=== PATIENT | female | born 1975 | race Caucasian/White ===

== ENCOUNTER 2022-07-28 07:56 | Observation (INO) | payer OTHER ==
[2022-07-28] MEDS ORDERED: Reglan 10 MG/2 ML IV ONE (08:10)
[2022-07-28] MEDS ORDERED: Versed 2 MG/2 ML Injection IV PRN (08:10)
[2022-07-28] MEDS ORDERED: Transderm Scop 1.5MG Patch TOP PRN (08:10)
[2022-07-28] MEDS ORDERED: CEFAZOLIN 2 GM-D5W BAG** 2 GM/50 ML ML IV SCH (08:30)
[2022-07-28] MEDS: Lactated Ringers 1,000 ML IV SCH ×2 (08:43→23:42)
[2022-07-28 08:44] LABS: HCG URINE TEST NEGATIVE (NEGATIVE)
[2022-07-28 09:03] LABS: Hemoglobin 10.5 g/dL (12.0-16.0); Mean Cell Volume 71.8 fL (78-100); Mean Corpuscular Hemoglobin 20.4 pg (26-32); Mean Corpuscular Hgb Concent. 28.4 g/dL (32-36); Platelet Count 450 x10^3/uL (150-450); Red Blood Count 5.15 x10^6/uL (4.1-5.4); Red Cell Distribution Width 19.9 % (11.5-14.0); White Blood Count 9.1 x10^3/uL (4.0-10.5)
[2022-07-28 09:37] LABS: ABO TYPING B; Antibody Screen NEGATIVE (NEGATIVE); RH TYPING POSITIVE
[2022-07-28 10:01] LABS: INFLUENZA A NEGATIVE (NEGATIVE); INFLUENZA B NEGATIVE (NEGATIVE); RESPIRATORY SYNCTIAL VIRUS NEGATIVE (NEGATIVE); SARS-CoV-2 Xpert Express NEGATIVE (NEGATIVE)
[2022-07-28] MEDS ORDERED: DIPRIVAN 200 MG/20 ML IV ONE (10:22)
[2022-07-28] MEDS ORDERED: Zofran 4 MG/2 ML VIAL ONE ×2 (10:23→12:56)
[2022-07-28] MEDS ORDERED: Xylocaine-Mpf 2% 5 Ml Vial ONE (10:23)
[2022-07-28] MEDS ORDERED: Decadron 4 MG INJ ONE ×2 (10:23→10:31)
[2022-07-28] MEDS ORDERED: TORAdol 30 mg Injection ONE (10:23)
[2022-07-28] MEDS ORDERED: Quelicin Fliptop 200 MG/10 ML ONE (10:25)
[2022-07-28] MEDS ORDERED: SUBLIMAZE 100 MCG/2 ML ONE ×3 (10:30→12:53)
[2022-07-28] MEDS ORDERED: Marcaine 0.5%/Epinephrine 10 ML ONE (10:31)
[2022-07-28] MEDS ORDERED: DEXMEDETOMIDINE 80 MCG/20ML-NS IV ONE (10:31)
[2022-07-28] MEDS ORDERED: OFIRMEV 100 ML IV ONE (10:32)
[2022-07-28] MEDS ORDERED: Versed 2 MG/2 ML Injection ONE (10:36)
[2022-07-28 10:40] LABS: Slide Review YES
[2022-07-28] MEDS ORDERED: Ketamine HCl 50 MG/ML ONE (10:47)
[2022-07-28] MEDS ORDERED: Magnesium Sulfate 1 GM/2 ML VIAL ONE (10:48)
[2022-07-28] MEDS ORDERED: Zemuron 100 MG/10 ML ONE ×2 (10:55→11:28)
[2022-07-28 11:11] LABS: ALBUMIN 4.3 g/dL (3.5-5.0); ALKALINE PHOSPHATASE 55 U/L (38-126); ANION GAP 13.2 MEQ/L (5-15); BLOOD UREA NITROGEN 16 mg/dL (7-17); CHLORIDE 109 mmol/L (98-107); Carbon Dioxide 24 mmol/L (22-30); Creatinine 1 0.78 mg/dL (0.52-1.04); EST GLOMERULAR FILTRATION RATE > 60.0 ML/MIN; Glucose 96 mg/dL (74-106); Potassium 4.6 mmol/L (3.5-5.1); SGOT/AST 24 U/L (14-36); SGPT/ALT 15 U/L (0-35); SODIUM 141 mmol/L (137-145); Total Protein 7.5 g/dL (6.3-8.2)
[2022-07-28] MEDS ORDERED: Ephedrine Sulfate 50 MG/ML ONE (11:22)
[2022-07-28] MEDS ORDERED: BRIDION 200MG/2ML IV ONE (11:26)
[2022-07-28] MEDS ORDERED: Lactated Ringers 1,000 ML IV ONE (11:29)
[2022-07-28] MEDS ORDERED: ROBINUL ONE (11:57)
[2022-07-28] MEDS ORDERED: TORAdol 30 mg Injection IV PRN (13:25)
[2022-07-28] MEDS ORDERED: DILAUDID 1 MG/1ML PCA SYRINGE IV PRN (13:26)
[2022-07-28 13:27] LABS: Appearance Clear (Clear); Bilirubin Negative (Negative); Blood Negative (Negative); Glucose, Urine Negative (Negative); Ketones Negative (Negative); Leukocyte Esterase Negative (Negative); Nitrite Negative (Negative); Protein,Urine Dip Negative (Negative); RBC 0-2 /HPF (0-5); Urobilinogen 0.2 mg/dL (0.2)
[2022-07-28 13:29] LABS: Epithelial Cells Few /HPF (None Seen)
[2022-07-28 13:30] LABS: Bacteria Rare /HPF (None Seen); Hyaline Casts None Seen /LPF (0-2)
[2022-07-28] MEDS: HYDROMORPHONE 30 MG/30 ML-NS PCA IV PRN (13:49)
[2022-07-28] MEDS: Reglan 10 MG/2 ML IV SCH ×2 (14:26→22:29)
[2022-07-28] MEDS: Mylicon 80MG PO SCH ×2 (14:26→22:30)
[2022-07-28] MEDS ORDERED: PHARMACY DOSING REQUEST MC ONE ×2 (15:00→20:00)
[2022-07-28 18:15] LABS: Hematocrit 33.9 % (35-47); Hemoglobin 9.7 g/dL (12.0-16.0); Mean Cell Volume 71.7 fL (78-100); Mean Corpuscular Hemoglobin 20.5 pg (26-32); Mean Corpuscular Hgb Concent. 28.6 g/dL (32-36); Mean Platelet Volume 9.6 fL (7.5-11.0); Platelet Count 467 x10^3/uL (150-450); Red Blood Count 4.73 x10^6/uL (4.1-5.4); Red Cell Distribution Width 19.1 % (11.5-14.0); White Blood Count 16.7 x10^3/uL (4.0-10.5)
[2022-07-28] MEDS: Zofran 4 MG/2 ML VIAL IV PRN (20:38)
[2022-07-28] MEDS: CEFAZOLIN 2 GM-D5W BAG** 2 GM/50 ML ML IV SCH (20:38)
[2022-07-28] MEDS: OXYCODONE-ACETAMINOPHEN 10-325 PO SCH (20:51)
[2022-07-28] MEDS ORDERED: IBUPROFEN PO SCH (22:00)
[2022-07-28] MEDS: MOTRIN 400 MG PO SCH (22:29)
[2022-07-28] MEDS: Docusate Sodium 100 MG PO SCH (22:30)
[2022-07-29] MEDS: OXYCODONE-ACETAMINOPHEN 10-325 PO SCH ×2 (00:49→05:42)
[2022-07-29] MEDS: CEFAZOLIN 2 GM-D5W BAG** 2 GM/50 ML ML IV SCH (03:38)
[2022-07-29] MEDS ORDERED: CLARITIN 10 MG PO ONE (04:04)
[2022-07-29] MEDS: Mylicon 80MG PO SCH (05:42)
[2022-07-29] MEDS: Reglan 10 MG/2 ML IV SCH (05:43)
[2022-07-29 06:55] LABS: ALBUMIN 3.6 g/dL (3.5-5.0); ALKALINE PHOSPHATASE 54 U/L (38-126); ANION GAP 14.9 MEQ/L (5-15); BLOOD UREA NITROGEN 15 mg/dL (7-17); CHLORIDE 104 mmol/L (98-107); Calcium 8.3 mg/dL (8.4-10.2); Carbon Dioxide 24 mmol/L (22-30); Creatinine 1 0.85 mg/dL (0.52-1.04); EST GLOMERULAR FILTRATION RATE > 60.0 ML/MIN; Glucose 126 mg/dL (74-106); Potassium 4.4 mmol/L (3.5-5.1); SGOT/AST 29 U/L (14-36); SGPT/ALT 19 U/L (0-35); SODIUM 139 mmol/L (137-145); Total Protein 6.4 g/dL (6.3-8.2)
[2022-07-29] MEDS: HYDROMORPHONE 30 MG/30 ML-NS PCA IV PRN (07:31)
--- NOTE | 2022-07-29 07:40 | PCM.NOTE ---
Date and Time: 07/29/22 0738 Subjective Assessment: pod 1 sp hair pt resting in bed and doing well able to ambulate and tolerate diet. vss afebrile abd; soft incision c/d/intact with dressing intact with no soiling ext; no clubbing cyanosis or edema a/p sp hair dc home today should fu office in 1 wk for dressing removal Objective Exam Wound Assessment: Skin/Wound Assessment Wound/Incision Assessment Start: 07/28/22 14:19 Text: Status: Active Freq: Q8H Protocol: Document 07/29/22 03:30 MS (Rec: 07/29/22 06:32 MS [id number]) Wound/Incision Assessment Lower Abdomen Wound Assessment Shift Assessment Wound Type Incision Wound Stage Non Pressure Wound Dressing Status Dry & Intact Drainage Amount None OBJECTIVE DATA Vital Signs: Vital Signs - 24 hr Temp Pulse Resp BP Pulse Ox 07/29/22 07:31 18 98 07/29/22 06:53 94 L 07/29/22 05:49 16 98 07/29/22 03:30 97.5 F 63 18 96/50 95 07/29/22 01:49 16 96 07/29/22 00:00 97.7 F 77 18 107/62 96 07/28/22 21:49 20 97 07/28/22 20:00 98.0 F 93 H 19 123/77 96 07/28/22 18:20 18 93 L 07/28/22 15:59 98.5 F 75 18 118/65 93 L 07/28/22 15:30 117/60 07/28/22 15:26 98.5 F 75 18 124/54 93 L 07/28/22 15:00 75 18 124/54 93 L 07/28/22 14:23 110/61 07/28/22 14:16 122/64 07/28/22 14:01 127/66 07/28/22 13:49 16 94 L 07/28/22 13:46 98.5 F 66 16 134/73 91 L 07/28/22 13:00 98.5 F 66 16 134/73 91 L 07/28/22 08:30 97.8 F 79 16 128/85 97 07/28/22 08:29 97.8 F 79 16 128/85 97 07/28/22 08:28 97.8 F 79 16 128/85 97 07/28/22 08:16 97.8 F 79 16 128/85 97 Pain Assessment - Last Documented Pain Intensity 5 Pain Scale Used 0-10 Pain Scale Intake and Output: Intake & Output 07/26/22 07/27/22 07/28/22 07/29/22 11:59 11:59 11:59 11:59 Intake Total 540 Output Total 700 Balance -160 Weight 97.8 kg 99.1 kg Lab Results: Lab Results-Last 24 Hours 07/28/22 07/28/22 07/28/22 Range/Units 08:11 08:48 08:48 WBC 9.1 (4.0-10.5) x10^3/uL RBC 5.15 (4.1-5.4) x10^6/uL Hgb 10.5 L (12.0-16.0) g/dL Hct 37.0 (35-47) % MCV 71.8 L (78-100) fL MCH 20.4 L (26-32) pg MCHC 28.4 L (32-36) g/dL RDW 19.9 H (11.5-14.0) % Plt Count 450 (150-450) x10^3/uL MPV 10.0 (7.5-11.0) fL Sodium 141 (137-145) mmol/L Potassium 4.6 (3.5-5.1) mmol/L Chloride 109 H (98-107) mmol/L Carbon Dioxide 24 (22-30) mmol/L Anion Gap 13.2 (5-15) MEQ/L BUN 16 (7-17) mg/dL Creatinine 0.78 (0.52-1.04) mg/dL Estimated GFR > 60.0 ML/MIN Glucose 96 (74-106) mg/dL Calcium 9.0 (8.4-10.2) mg/dL Total Bilirubin 0.40 (0.2-1.3) mg/dL AST 24 (14-36) U/L ALT 15 (0-35) U/L Alkaline Phosphatase 55 (38-126) U/L Serum Total Protein 7.5 (6.3-8.2) g/dL Albumin 4.3 (3.5-5.0) g/dL Urine Color (Yellow) Urine Appearance (Clear) Urine pH (4.6-8.0) Ur Specific [place] (1.005-1.030) Urine Protein (Negative) Urine Glucose (UA) (Negative) mg/dL Urine Ketones (Negative) Urine Blood (Negative) Urine Nitrite (Negative) Urine Bilirubin (Negative) Urine Urobilinogen (0.2) mg/dL Ur Leukocyte Esterase (Negative) U Hyaline Cast (Auto) (0-2) /LPF Urine Microscopic RBC (0-5) /HPF Urine Microscopic WBC (0-5) /HPF Ur Epithelial Cells (None Seen) /HPF Urine Bacteria (None Seen) /HPF Urine HCG, Qual NEGATIVE (NEGATIVE) Influenza Type A Ag (NEGATIVE) Influenza Type B Ag (NEGATIVE) RSV (PCR) (NEGATIVE) SARS-CoV-2 (PCR) (NEGATIVE) Slides for Path Review YES ABO Group Rh Factor Antibody Screen (NEGATIVE) 07/28/22 07/28/22 07/28/22 Range/Units 08:48 08:48 11:49 WBC (4.0-10.5) x10^3/uL RBC (4.1-5.4) x10^6/uL Hgb (12.0-16.0) g/dL Hct (35-47) % MCV (78-100) fL MCH (26-32) pg MCHC (32-36) g/dL RDW (11.5-14.0) % Plt Count (150-450) x10^3/uL MPV (7.5-11.0) fL Sodium (137-145) mmol/L Potassium (3.5-5.1) mmol/L Chloride (98-107) mmol/L Carbon Dioxide (22-30) mmol/L Anion Gap (5-15) MEQ/L BUN (7-17) mg/dL Creatinine (0.52-1.04) mg/dL Estimated GFR ML/MIN Glucose (74-106) mg/dL Calcium (8.4-10.2) mg/dL Total Bilirubin (0.2-1.3) mg/dL AST (14-36) U/L ALT (0-35) U/L Alkaline Phosphatase (38-126) U/L Serum Total Protein (6.3-8.2) g/dL Albumin (3.5-5.0) g/dL Urine Color Yellow (Yellow) Urine Appearance Clear (Clear) Urine pH 7.0 (4.6-8.0) Ur Specific [place] 1.020 (1.005-1.030) Urine Protein Negative (Negative) Urine Glucose (UA) Negative (Negative) mg/dL Urine Ketones Negative (Negative) Urine Blood Negative (Negative) Urine Nitrite Negative (Negative) Urine Bilirubin Negative (Negative) Urine Urobilinogen 0.2 (0.2) mg/dL Ur Leukocyte Esterase Negative (Negative) U Hyaline Cast (Auto) None Seen (0-2) /LPF Urine Microscopic RBC 0-2 (0-5) /HPF Urine Microscopic WBC 3-5 (0-5) /HPF Ur Epithelial Cells Few (None Seen) /HPF Urine Bacteria Rare A (None Seen) /HPF Urine HCG, Qual (NEGATIVE) Influenza Type A Ag NEGATIVE (NEGATIVE) Influenza Type B Ag NEGATIVE (NEGATIVE) RSV (PCR) NEGATIVE (NEGATIVE) SARS-CoV-2 (PCR) NEGATIVE (NEGATIVE) Slides for Path Review ABO Group B Rh Factor POSITIVE Antibody Screen NEGATIVE (NEGATIVE) 07/28/22 07/29/22 Range/Units 18:00 04:59 WBC 16.7 H (4.0-10.5) x10^3/uL RBC 4.73 (4.1-5.4) x10^6/uL Hgb 9.7 L (12.0-16.0) g/dL Hct 33.9 L (35-47) % MCV 71.7 L (78-100) fL MCH 20.5 L (26-32) pg MCHC 28.6 L (32-36) g/dL RDW 19.1 H (11.5-14.0) % Plt Count 467 H (150-450) x10^3/uL MPV 9.6 (7.5-11.0) fL Sodium 139 (137-145) mmol/L Potassium 4.4 (3.5-5.1) mmol/L Chloride 104 (98-107) mmol/L Carbon Dioxide 24 (22-30) mmol/L Anion Gap 14.9 (5-15) MEQ/L BUN 15 (7-17) mg/dL Creatinine 0.85 (0.52-1.04) mg/dL Estimated GFR > 60.0 ML/MIN Glucose 126 H (74-106) mg/dL Calcium 8.3 L (8.4-10.2) mg/dL Total Bilirubin 0.30 (0.2-1.3) mg/dL AST 29 (14-36) U/L ALT 19 (0-35) U/L Alkaline Phosphatase 54 (38-126) U/L Serum Total Protein 6.4 (6.3-8.2) g/dL Albumin 3.6 (3.5-5.0) g/dL Urine Color (Yellow) Urine Appearance (Clear) Urine pH (4.6-8.0) Ur Specific [place] (1.005-1.030) Urine Protein (Negative) Urine Glucose (UA) (Negative) mg/dL Urine Ketones (Negative) Urine Blood (Negative) Urine Nitrite (Negative) Urine Bilirubin (Negative) Urine Urobilinogen (0.2) mg/dL Ur Leukocyte Esterase (Negative) U Hyaline Cast (Auto) (0-2) /LPF Urine Microscopic RBC (0-5) /HPF Urine Microscopic WBC (0-5) /HPF Ur Epithelial Cells (None Seen) /HPF Urine Bacteria (None Seen) /HPF Urine HCG, Qual (NEGATIVE) Influenza Type A Ag (NEGATIVE) Influenza Type B Ag (NEGATIVE) RSV (PCR) (NEGATIVE) SARS-CoV-2 (PCR) (NEGATIVE) Slides for Path Review ABO Group Rh Factor Antibody Screen (NEGATIVE) Radiology Exams: Radiology Procedures Category Date Time Status ABDOMEN AND PELVIS W/0 CONTRAS [CT] Urgent Exams 07/28/22 18:30 Taken Assessment/Plan (1) S/P total abdominal hysterectomy Current Visit: Yes Status: Acute Code(s): Z90.710 - ACQUIRED ABSENCE OF BOTH CERVIX AND UTERUS
--- NOTE | 2022-07-29 07:46 | PCM.DS ---
Discharge Summary Date of Admission: 07/28/22 07:56 Admitting Physician: JAMES COHEN DO Primary Care Provider: ELLNE VALDEZ Allergies Allergies shrimp Allergy (Severe, Verified 07/28/22 08:15) Anaphylactic Reaction bupropion [From Wellbutrin] Allergy (Unknown, Verified 07/28/22 08:15) [facility] Summary - Hospital Course Hospital Course: pt was admitted on july 28 after undergoing total abdominal hysterectomy secondary to large fibroid uterus; during postop period did very well and was able to ambulate and tolerate diet. pt had stable hgb at 9.7 wtih normal cmp. pt under ct scan secondary to severe postop abdominal pelvic pain and was noted to being normal. at this time pt stable for discharge and rx of percocet will be sent to her pharmacy. pt advised to fu in office in 1 wk for postop check and dressing removal. all questions answered to her satisfaction. - Vitals & Intake/Output Vital Signs: Vital Signs Temperature 97.5 F 07/29/22 03:30 Pulse Rate 63 07/29/22 03:30 Respiratory Rate 18 07/29/22 07:31 Blood Pressure 96/50 07/29/22 03:30 O2 Sat by Pulse Oximetry 98 07/29/22 07:31 Intake & Output: Intake & Output 07/26/22 07/27/22 07/28/22 07/29/22 11:59 11:59 11:59 11:59 Intake Total 540 Output Total 700 Balance -160 Weight 97.8 kg 99.1 kg - Lab Result Diagrams: 07/28/22 18:00 07/29/22 04:59 Lab Results-Last 24 Hrs: Lab Results-Last 24 Hours 07/28/22 07/28/22 07/28/22 Range/Units 08:11 08:48 08:48 WBC 9.1 (4.0-10.5) x10^3/uL RBC 5.15 (4.1-5.4) x10^6/uL Hgb 10.5 L (12.0-16.0) g/dL Hct 37.0 (35-47) % MCV 71.8 L (78-100) fL MCH 20.4 L (26-32) pg MCHC 28.4 L (32-36) g/dL RDW 19.9 H (11.5-14.0) % Plt Count 450 (150-450) x10^3/uL MPV 10.0 (7.5-11.0) fL Sodium 141 (137-145) mmol/L Potassium 4.6 (3.5-5.1) mmol/L Chloride 109 H (98-107) mmol/L Carbon Dioxide 24 (22-30) mmol/L Anion Gap 13.2 (5-15) MEQ/L BUN 16 (7-17) mg/dL Creatinine 0.78 (0.52-1.04) mg/dL Estimated GFR > 60.0 ML/MIN Glucose 96 (74-106) mg/dL Calcium 9.0 (8.4-10.2) mg/dL Total Bilirubin 0.40 (0.2-1.3) mg/dL AST 24 (14-36) U/L ALT 15 (0-35) U/L Alkaline Phosphatase 55 (38-126) U/L Serum Total Protein 7.5 (6.3-8.2) g/dL Albumin 4.3 (3.5-5.0) g/dL Urine Color (Yellow) Urine Appearance (Clear) Urine pH (4.6-8.0) Ur Specific [place] (1.005-1.030) Urine Protein (Negative) Urine Glucose (UA) (Negative) mg/dL Urine Ketones (Negative) Urine Blood (Negative) Urine Nitrite (Negative) Urine Bilirubin (Negative) Urine Urobilinogen (0.2) mg/dL Ur Leukocyte Esterase (Negative) U Hyaline Cast (Auto) (0-2) /LPF Urine Microscopic RBC (0-5) /HPF Urine Microscopic WBC (0-5) /HPF Ur Epithelial Cells (None Seen) /HPF Urine Bacteria (None Seen) /HPF Urine HCG, Qual NEGATIVE (NEGATIVE) Influenza Type A Ag (NEGATIVE) Influenza Type B Ag (NEGATIVE) RSV (PCR) (NEGATIVE) SARS-CoV-2 (PCR) (NEGATIVE) Slides for Path Review YES ABO Group Rh Factor Antibody Screen (NEGATIVE) 07/28/22 07/28/22 07/28/22 Range/Units 08:48 08:48 11:49 WBC (4.0-10.5) x10^3/uL RBC (4.1-5.4) x10^6/uL Hgb (12.0-16.0) g/dL Hct (35-47) % MCV (78-100) fL MCH (26-32) pg MCHC (32-36) g/dL RDW (11.5-14.0) % Plt Count (150-450) x10^3/uL MPV (7.5-11.0) fL Sodium (137-145) mmol/L Potassium (3.5-5.1) mmol/L Chloride (98-107) mmol/L Carbon Dioxide (22-30) mmol/L Anion Gap (5-15) MEQ/L BUN (7-17) mg/dL Creatinine (0.52-1.04) mg/dL Estimated GFR ML/MIN Glucose (74-106) mg/dL Calcium (8.4-10.2) mg/dL Total Bilirubin (0.2-1.3) mg/dL AST (14-36) U/L ALT (0-35) U/L Alkaline Phosphatase (38-126) U/L Serum Total Protein (6.3-8.2) g/dL Albumin (3.5-5.0) g/dL Urine Color Yellow (Yellow) Urine Appearance Clear (Clear) Urine pH 7.0 (4.6-8.0) Ur Specific [place] 1.020 (1.005-1.030) Urine Protein Negative (Negative) Urine Glucose (UA) Negative (Negative) mg/dL Urine Ketones Negative (Negative) Urine Blood Negative (Negative) Urine Nitrite Negative (Negative) Urine Bilirubin Negative (Negative) Urine Urobilinogen 0.2 (0.2) mg/dL Ur Leukocyte Esterase Negative (Negative) U Hyaline Cast (Auto) None Seen (0-2) /LPF Urine Microscopic RBC 0-2 (0-5) /HPF Urine Microscopic WBC 3-5 (0-5) /HPF Ur Epithelial Cells Few (None Seen) /HPF Urine Bacteria Rare A (None Seen) /HPF Urine HCG, Qual (NEGATIVE) Influenza Type A Ag NEGATIVE (NEGATIVE) Influenza Type B Ag NEGATIVE (NEGATIVE) RSV (PCR) NEGATIVE (NEGATIVE) SARS-CoV-2 (PCR) NEGATIVE (NEGATIVE) Slides for Path Review ABO Group B Rh Factor POSITIVE Antibody Screen NEGATIVE (NEGATIVE) 07/28/22 07/29/22 Range/Units 18:00 04:59 WBC 16.7 H (4.0-10.5) x10^3/uL RBC 4.73 (4.1-5.4) x10^6/uL Hgb 9.7 L (12.0-16.0) g/dL Hct 33.9 L (35-47) % MCV 71.7 L (78-100) fL MCH 20.5 L (26-32) pg MCHC 28.6 L (32-36) g/dL RDW 19.1 H (11.5-14.0) % Plt Count 467 H (150-450) x10^3/uL MPV 9.6 (7.5-11.0) fL Sodium 139 (137-145) mmol/L Potassium 4.4 (3.5-5.1) mmol/L Chloride 104 (98-107) mmol/L Carbon Dioxide 24 (22-30) mmol/L Anion Gap 14.9 (5-15) MEQ/L BUN 15 (7-17) mg/dL Creatinine 0.85 (0.52-1.04) mg/dL Estimated GFR > 60.0 ML/MIN Glucose 126 H (74-106) mg/dL Calcium 8.3 L (8.4-10.2) mg/dL Total Bilirubin 0.30 (0.2-1.3) mg/dL AST 29 (14-36) U/L ALT 19 (0-35) U/L Alkaline Phosphatase 54 (38-126) U/L Serum Total Protein 6.4 (6.3-8.2) g/dL Albumin 3.6 (3.5-5.0) g/dL Urine Color (Yellow) Urine Appearance (Clear) Urine pH (4.6-8.0) Ur Specific [place] (1.005-1.030) Urine Protein (Negative) Urine Glucose (UA) (Negative) mg/dL Urine Ketones (Negative) Urine Blood (Negative) Urine Nitrite (Negative) Urine Bilirubin (Negative) Urine Urobilinogen (0.2) mg/dL Ur Leukocyte Esterase (Negative) U Hyaline Cast (Auto) (0-2) /LPF Urine Microscopic RBC (0-5) /HPF Urine Microscopic WBC (0-5) /HPF Ur Epithelial Cells (None Seen) /HPF Urine Bacteria (None Seen) /HPF Urine HCG, Qual (NEGATIVE) Influenza Type A Ag (NEGATIVE) Influenza Type B Ag (NEGATIVE) RSV (PCR) (NEGATIVE) SARS-CoV-2 (PCR) (NEGATIVE) Slides for Path Review ABO Group Rh Factor Antibody Screen (NEGATIVE) - Radiology Exams Ordered Rad Exams-Entire Visit: Radiology Procedures Category Date Time Status ABDOMEN AND PELVIS W/0 CONTRAS [CT] Urgent Exams 07/28/22 18:30 Taken - Procedures and Test Procedures and Tests throughout Hospitalization: Therapy Orders & Screens 07/28/22 15:39 Incentive Spirometry UD Comment: Diagnosis: Total Abdominal Hysterectomy 07/29/22 00:27 Oxygen Nasal Cannula 2 lpm Comment: Diagnosis: Total Abdominal Hysterectomy Discharge Exam Wound Assessment: Skin/Wound Assessment Wound/Incision Assessment Start: 07/28/22 14:19 Text: Status: Active Freq: Q8H Protocol: Document 07/29/22 03:30 MS (Rec: 07/29/22 06:32 MS [id number]) Wound/Incision Assessment Lower Abdomen Wound Assessment Shift Assessment Wound Type Incision Wound Stage Non Pressure Wound Dressing Status Dry & Intact Drainage Amount None Final Diagnosis/Problem List - Final Discharge Diagnosis/Problem (1) S/P total abdominal hysterectomy Current Visit: Yes Status: Acute Code(s): Z90.710 - ACQUIRED ABSENCE OF BOTH CERVIX AND UTERUS - Discharge Disposition: Home, Self-Care Condition: Stable Prescriptions: New Oxycodone HCl/Acetaminophen [Oxycodone-Acetaminophen 5-325] 1 each PO Q6HPRN PRN #28 tablet MDD 4 PRN Reason: Pain No Action Ibuprofen [IBUPROFEN 400 MG TABLET] 800 mg PO BID Docusate Sodium [Colace] 200 mg PO DAILY PRN PRN Reason: Constipation Follow up with: ELLEN VALDEZ NP [Primary Care Provider] - JAMES COHEN DO [ACTIVE STAFF] - 1 Week (should fu in office in 1 wk for dressing removal no driving for 10 days no heavy lifting no intercourse for 6 wks may go up and down stairs may shower but no bath for 2 wks)
[2022-07-29 08:00] VITALS: PULSE 74
--- NOTE | 2022-07-29 08:40 | OP ---
SURGERY DATE/TIME: 07/28/2022 1044 PREOPERATIVE DIAGNOSIS: Symptomatic fibroid uterus and abnormal uterine bleeding. POSTOPERATIVE DIAGNOSIS: Symptomatic fibroid uterus and abnormal uterine bleeding. PROCEDURE: Total abdominal hysterectomy. SURGEON: Oliver Caba D.O. SEAWEED HARVESTER: Yaneth Lewis hand frame surgical elastic knitter. ANESTHESIA: General. ESTIMATED BLOOD LOSS: 50 cc. COMPLICATIONS: None. INDICATIONS: The risks, benefits, indications and alternatives of the procedure were reviewed with the patient prior to the procedure. The patient understood the risk of infection, bleeding, bowel injury, bladder injury, ureteral injury, uterine perforation, pelvic infection and thromboembolic disorder associated with the surgery and desires to have the surgery as a possible means to alleviate her current medical condition. DESCRIPTION OF PROCEDURE AND FINDINGS: At this point the patient is taken to the operating room, placed in the supine position, given general anesthesia, prepared and draped in the usual sterile fashion. A Pfannenstiel incision was made approximately 2 cm above the symphysis pubis and extended sharply through the rectus fascia. The fascia was then incised bilaterally with curved Carter scissors and the muscle of the anterior abdominal wall were in the midline by sharp and blunt dissection. The peritoneum was then grasped between two pickups elevated and entered sharply with Metzenbaum scissors. The pelvis is then examined and noted to have an approximately 14 to 15 week size uterus with a large fibroid located on the left side left posterior side approximately 8 x 9 cm fibroid. At this point an O'Ok-O'Olsen retractor was placed into the incision and the bowel packed away with moist laparotomy sponges. Tenaculum was placed on the fundus of the uterus and used to elevate the uterus. At this point LigaSure was then used and was able to clamp the left utero-ovarian ligament where it was clamped, coagulated and cut and taken down to the round ligament towards the uterine vessel vasculature. At this point the anterior lip of the broad ligament was incised along the bladder reflection in the midline. The same procedure was performed on the right side where the right utero-ovarian ligament was clamped, coagulated and cut and taken down to the round ligament towards the uterine vasculature where it to was skeletonized and the anterior lip broad ligament was incised along the bladder reflection to the midline as well. From this point again the uterine arteries were skeletonized bilaterally, clamped with Car clamps transected and suture ligated with 0 Vicryl sutures. Again, hemostasis was assured. The uterosacral ligaments were clamped on both sides, transected and suture ligated in similar fashion. At this point the uterus and cervix were amputated with cautery. The vaginal cuff angles were closed with figure-of-8 sutures of 0 Vicryl and transected ipsilateral Cardinal ligaments. The remainder of the vaginal cuff was closed with a series of interrupted 0 Vicryl figure-of-8 sutures. Hemostasis was assured. The pelvis was then irrigated copiously with warm normal saline. All operative sponge and instruments were then removed from the patient's abdomen. The bilateral ovaries appeared to be within normal limits and were not removed during the procedure. The patient has had a previous salpingectomy bilaterally for sterilization. At this point the fascia was then closed with running 0 Vicryl and hemostasis assured. The subcutaneous layer was closed with 3-0 Vicryl suture and the skin was closed with absorbable richelle called INSORB. Sponge, lap and instruments counts were correct x2. The patient was then taken to the recovery room in stable condition. All instruments and laps were accounted for x2.
--- NOTE | 2022-07-29 08:41 | XRAY ---
Indication: Postop abdominal pain. Known iodine allergy. Multiple contiguous axial images obtained through the abdomen and pelvis without contrast. Comparison: None Lung bases demonstrates moderate bilateral subsegmental atelectasis. Incompletely visualized 5 mm right middle lobe well-circumscribed noncalcified nodule probably granulomatous. Heart not enlarged. Lower abdominal wall demonstrates scattered air bubbles presumed related to recent surgery. No walled off fluid collection or ventral hernia. Abdomen/pelvis also demonstrate scattered free air throughout and tiny pelvic free fluid also presumed postoperative. Uterus surgically absent. Urinary bladder near empty with Berg balloon catheter in situ. Noncontrasted stomach and bowel loops appear nonobstructed with normal appearing appendix. Mild scattered colonic fecal debris throughout. Left upper kidney demonstrates 4 cm cyst. Remaining liver, gallbladder, pancreas, spleen, adrenal glands, kidneys, and ureters appear unremarkable. Minimal aortic calcifications without AAA. Osseous structures demonstrates moderate L4-L5 degenerative changes and bilateral L4 spondylolysis with 11-12 mm anterolisthesis. Impression: 1. Postoperative lower abdominal wall air, intra-abdominal/pelvic free air, and tiny pelvic free fluid. No walled off or suspicious fluid collection. 2. Moderate bibasilar subsegmental atelectasis. 5 mm right middle lobe well-circumscribed noncalcified nodule probably granulomatous. 3. Incidental mild diffuse fecal stasis, left renal cyst, L4-L5 degenerative changes, and L4 spondylolysis with grade 2 listhesis.
[2022-07-29] MEDS ORDERED: ENOXAPARIN SODIUM SQ SCH (09:00)
[2022-07-29] MEDS: Docusate Sodium 100 MG PO SCH (09:05)
[2022-07-29] MEDS: MOTRIN 400 MG PO SCH (09:05)
[2022-07-29] MEDS: OXYCODONE-ACETAMINOPHEN 10-325 PO PRN ×2 (09:56→13:56)
[2022-07-29] MEDS: Zofran 4 MG/2 ML VIAL IV PRN (09:58)
[2022-07-29 11:51] VITALS: BP 115/74; O2SAT 95
== END 2022-07-29 14:05 | disposition home or self-care (01) ==
LOC: MED SURG 07:56 → INTOOBSV 07:56 → EDSTATUS 14:06
PROVIDERS: ADMIT Obstetrics & Gynecology; ATTEND Obstetrics & Gynecology
DX: D25.9 Leiomyoma of uterus, unspecified (principal); N93.9 Abnormal uterine and vaginal bleeding, unspecified; Z20.828 Contact with and (suspected) exposure to other viral communicable diseases
CPT/HCPCS: 0241U; 36415; 58150; 64488; 74176; 76937; 80053; 81001; 81025; 85027; 86850; 86900; 86901; 87086; 94760; G0378; J0330; J0690; J1100; J1170; J1885; J2250; J2405; J2704; J3010; J3475; A9270-GY

== ENCOUNTER 2022-08-17 13:38 | Emergency (ER) | payer OTHER ==
--- NOTE | 2022-08-17 13:55 | ERPHSYRPT ---
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 Approximately 1 week after the surgery patient noticed a dull cramping in the left lower quadrant. She describes that now as being a constant dull crampiness that never goes away with occasional sharp shooting pains with movement that are more severe. She has not noticed any drainage from her incision site or any vaginal discharge. She is concerned because her s ymptoms have not resolved. Timing/Duration: week(s) (3), intermittent, worse Quality: cramping, sharpness, stabbing Abdominal Pain Onset Location: LLQ Pain Radiation: no radiation Severity of Pain-Max: moderate Severity of Pain-Current: mild Modifying Factors: Improves With: movement Associated Symptoms: denies symptoms Previous symptoms: recent hospitalization (Within the last few weeks. However, not for this spectrum of symptoms.), recently treated Allergies/Adverse Reactions: shrimp Allergy (Severe, Verified 08/17/22 13:50) Anaphylactic Reaction bupropion [From Wellbutrin] Allergy (Unknown, Verified 08/17/22 13:50) Hives Home Medications: Ibuprofen [IBUPROFEN 400 MG TABLET] 800 mg PO BID 07/06/22 [History] Travel Risk - International Travel Have you traveled outside of the country in past 3 weeks: No - Coronavirus Screening Are you exhibiting any of the following symptoms?: No Close contact with a COVID-19 positive Pt in past 14-21 Days: No - Vaccine Status Have you recieved a Covid-19 vaccination: No - Review of Systems Constitutional: No Symptoms Eyes: No Symptoms Ears, Nose, & Throat: No Symptoms Respiratory: No Symptoms Cardiac: No Symptoms Abdominal/Gastrointestinal: Abdominal Pain (Left lower quadrant) Genitourinary Symptoms: No Symptoms Musculoskeletal: No Symptoms Skin: No Symptoms Neurological: No Symptoms Psychological: No Symptoms Endocrine: No Symptoms Hematologic/Lymphatic: No Symptoms Immunological/Allergic: No Symptoms All Other Systems: Reviewed and Negative - Past Medical History Pertinent Past Medical History: Yes Neurological History: No Pertinent History ENT History: No Pertinent History Cardiac History: No Pertinent History Respiratory History: No Pertinent History Endocrine Medical History: No Pertinent History Musculoskeletal History: No Pertinent History GI Medical History: No Pertinent History History: No Pertinent History Psycho-Social History: No Pertinent History Female Reproductive Disorders: Abnormal Uterine Bleeding Other Medical History: Mrsa in throat approx 5 years, ESBL June 2021, lower back injury approx 2010 pt is supposed to fusion to lower back. - Past Surgical History Past Surgical History: Yes Neuro Surgical History: No Pertinent History Cardiac: No Pertinent History Respiratory: No Pertinent History Gastrointestinal: No Pertinent History Genitourinary: No Pertinent History Musculoskeletal: No Pertinent History Female Surgical History: Tubal Ligation - Social History Smoking Status: Never smoker How long have you smoked: 36 years Exposure to second hand smoke: Yes Drug Use: none - Nursing Vital Signs Nursing Vital Signs: Initial Vital Signs Pulse Rate 74 08/17/22 13:39 Respiratory Rate 18 08/17/22 13:39 Blood Pressure 150/88 08/17/22 13:39 O2 Sat by Pulse Oximetry 98 08/17/22 13:39 Pain Scale Pain Intensity 5 - Physical Exam General Appearance: no apparent distress, alert, anxiety, obese Eye Exam: PERRL/EOMI, eyes nml inspection Ears, Nose, Throat Exam: normal ENT inspection, moist mucous membranes Neck Exam: normal inspection, non-tender, supple, full range of motion Respiratory Exam: normal breath sounds, lungs clear, airway intact, No chest tenderness, No respiratory distress Cardiovascular Exam: regular rate/rhythm, normal heart sounds, normal peripheral pulses Gastrointestinal/Abdomen Exam: soft, normal bowel sounds, tenderness (Left lower quadrant mild to palpation), other (Pfannenstiel incision site clean dry intact without infection or drainage), No guarding Pelvic Exam: not done Rectal Exam: not done Back Exam: normal inspection, normal range of motion, No CVA tenderness, No vertebral tenderness Extremity Exam: normal inspection, normal range of motion, pelvis stable Neurologic Exam: alert, oriented x 3, cooperative, manager of allied health services II-XII nml as tested, normal mood/affect, nml cerebellar function, nml station & gait, sensation nml Skin Exam: normal color, warm, dry Lymphatic Exam: No adenopathy SpO2 Interpretation: normal O2 Delivery: Room Air - Course Nursing assessment & vital signs reviewed: Yes Ordered Tests: Active Orders 24 hr Category Date Time Status ABDOMEN AND PELVIS W/0 CONTRAS [CT] Stat Exams 05/15/23 14:59 Completed AMYLASE Stat Lab 08/17/22 15:32 Completed CBC W DIFF Stat Lab 08/17/22 15:32 Completed CMP Stat Lab 08/17/22 15:32 Completed LIPASE Stat Lab 08/17/22 15:32 Completed UA W/RFX UR CULTURE Stat Lab 08/17/22 15:11 Completed Lab/Rad Data: Laboratory Result Diagrams 08/17/22 15:32 08/17/22 15:32 Laboratory Results 08/17/22 08/17/22 08/17/22 Range/Units 15:32 15:32 15:11 WBC 9.5 (4.0-10.5) x10^3/uL RBC 5.01 (4.1-5.4) x10^6/uL Hgb 10.4 L (12.0-16.0) g/dL Hct 35.2 (35-47) % MCV 70.3 L (78-100) fL MCH 20.8 L (26-32) pg MCHC 29.5 L (32-36) g/dL RDW 21.2 H (11.5-14.0) % Plt Count 594 H (150-450) x10^3/uL MPV 9.8 (7.5-11.0) fL Gran % 64.1 (36.0-66.0) % Immature Gran % (Auto) 0.2 (0.00-0.4) % Nucleat RBC Rel Count 0.0 (0.00-0.1) % Eos # (Auto) 0.25 (0-0.5) x10^3/uL Immature Gran # (Auto) 0.02 (0.00-0.03) x10^3u/L Absolute Lymphs (auto) 2.51 (1.0-4.6) x10^3/uL Absolute Monos (auto) 0.54 (0.0-1.3) x10^3/uL Absolute Nucleated RBC 0.00 (0.00-0.01) x10^3u/L Lymphocytes % 26.6 (24.0-44.0) % Monocytes % 5.7 (0.0-12.0) % Eosinophils % 2.6 (0.00-5.0) % Basophils % 0.8 (0.0-0.4) % Absolute Granulocytes 6.05 (1.4-6.9) x10^3/uL Basophils # 0.08 (0-0.4) x10^3/uL Sodium 138 (137-145) mmol/L Potassium 4.4 (3.5-5.1) mmol/L Chloride 106 (98-107) mmol/L Carbon Dioxide 24 (22-30) mmol/L Anion Gap 12.1 (5-15) MEQ/L BUN 12 (7-17) mg/dL Creatinine 0.88 (0.52-1.04) mg/dL Estimated GFR > 60.0 ML/MIN Glucose 92 (74-106) mg/dL Calcium 9.0 (8.4-10.2) mg/dL Total Bilirubin 0.40 (0.2-1.3) mg/dL AST 20 (14-36) U/L ALT 14 (0-35) U/L Alkaline Phosphatase 73 (38-126) U/L Serum Total Protein 7.3 (6.3-8.2) g/dL Albumin 4.0 (3.5-5.0) g/dL Amylase 77 (30-110) U/L Lipase 99 (23-300) U/L Urine Color Yellow (Yellow) Urine Appearance Clear (Clear) Urine pH 7.5 (4.6-8.0) Ur Specific [place] 1.015 (1.005-1.030) Urine Protein Negative (Negative) Urine Glucose (UA) Negative (Negative) mg/dL Urine Ketones Negative (Negative) Urine Blood Negative (Negative) Urine Nitrite Negative (Negative) Urine Bilirubin Negative (Negative) Urine Urobilinogen 0.2 (0.2) mg/dL Ur Leukocyte Esterase Negative (Negative) Urine Microscopic RBC 0-2 (0-5) /HPF Urine Microscopic WBC 0-2 (0-5) /HPF Ur Epithelial Cells None Seen (None Seen) /HPF Urine Bacteria None Seen (None Seen) /HPF Urine Culture Reflexed NO (NO) - Progress Progress: pain not gone completely, re-examined Progress Note: 08/17/22 16:48 CAT scan of the abdomen pelvis without contrast shows a tiny pelvic free fluid collection that has improved since the last CAT scan performed 3 weeks ago. It is presumed to be a postoperative change. There is no abscess or walled off fluid collection and no evidence of free air. 08/17/22 16:49 I attempted to call Dr. Caba to notify him of the patient being here in the emergency department. I was also going to notify him of the results of the work-up. There is no evidence of any acute or emergent findings. We will send her back to be evaluated by him as an outpatient. This patient's medical issue is 1 of moderate complexity. The level of complexity and the work-up performed is based on the patient's past medical history, medication list, drug allergy list, history of present illness and physical findings on examination. The work-up performed as a placement of intravenous line, CBC, CMP, amylase and lipase levels and a CAT scan of the abdomen pelvis. Patient refused any type of pain medicine. I reviewed the results of the work-up. Again, patient does not have evidence of any acute or emergent findings. We will send her back to see her auto repair technician as an outpatient. Counseled pt/family regarding: lab results, diagnosis, need for follow-up, rad results Medical Desision Making - Independent Historian Additional History obtained from: Spouse - Diagnostic Testing Diagnostic test were ordered, analyzed, and reviewed by me: Yes Radiological Interpretation: Reviewed by me, Teleradiologist Report - Risk of complications Minimal Risk: Minimal risk of morbidity - Departure Departure Disposition: Home Clinical Impression: Left lower quadrant abdominal pain Condition: Stable Critical Care Time: No Referrals: ELLEN VALDEZ NP [Primary Care Provider] - Follow up/PCP as directed Additional Instructions: Use Tylenol and ibuprofen for pain control. Call your auto repair technician office t omorrow morning to make arrangements for follow-up appointment for the next 3 to 5 days. Continue your other medication as prescribed.
[2022-08-17 14:06] VITALS: O2SAT 98
[2022-08-17 15:29] VITALS: BP 119/81; PULSE 71
[2022-08-17 15:30] LABS: Absolute Neutrophil Ct (ANC) 6.05 x10^3/uL (1.4-6.9); BASOPHIL % 0.8 % (0.0-0.4); Basophil (Absolute #) 0.08 x10^3/uL (0-0.4); Eosinophil % 2.6 % (0.00-5.0); Eosinophil (Absolute #) 0.25 x10^3/uL (0-0.5); Hematocrit 35.2 % (35-47); Hemoglobin 10.4 g/dL (12.0-16.0); IMMATURE GRAN # 0.02 x10^3u/L (0.00-0.03); IMMATURE GRAN % 0.2 % (0.00-0.4); Lymphocyte (Absolute #) 2.51 x10^3/uL (1.0-4.6); Lymphocytes % 26.6 % (24.0-44.0); Mean Cell Volume 70.3 fL (78-100); Mean Corpuscular Hemoglobin 20.8 pg (26-32); Mean Corpuscular Hgb Concent. 29.5 g/dL (32-36); Mean Platelet Volume 9.8 fL (7.5-11.0); Monocyte (Absolute #) 0.54 x10^3/uL (0.0-1.3); Monocytes % 5.7 % (0.0-12.0); Neutrophil % 64.1 % (36.0-66.0); Platelet Count 594 x10^3/uL (150-450); Red Blood Count 5.01 x10^6/uL (4.1-5.4); Red Cell Distribution Width 21.2 % (11.5-14.0); White Blood Count 9.5 x10^3/uL (4.0-10.5)
[2022-08-17 15:36] LABS: Appearance Clear (Clear); Bacteria None Seen /HPF (None Seen); Bilirubin Negative (Negative); Blood Negative (Negative); Epithelial Cells None Seen /HPF (None Seen); Glucose, Urine Negative (Negative); Ketones Negative (Negative); Leukocyte Esterase Negative (Negative); Nitrite Negative (Negative); Ph 7.5 (4.6-8.0); Protein,Urine Dip Negative (Negative); RBC 0-2 /HPF (0-5); Specific Gravity 1.015 (1.005-1.030); Urobilinogen 0.2 mg/dL (0.2); WBC 0-2 /HPF (0-5)
[2022-08-17 15:37] LABS: ADD URINE CULTURE? NO (NO)
[2022-08-17 16:03] LABS: ALKALINE PHOSPHATASE 73 U/L (38-126); AMYLASE 77 U/L (30-110); ANION GAP 12.1 MEQ/L (5-15); BLOOD UREA NITROGEN 12 mg/dL (7-17); CHLORIDE 106 mmol/L (98-107); Carbon Dioxide 24 mmol/L (22-30); Creatinine 1 0.88 mg/dL (0.52-1.04); EST GLOMERULAR FILTRATION RATE > 60.0 ML/MIN; Glucose 92 mg/dL (74-106); LIPASE 99 U/L (23-300); Potassium 4.4 mmol/L (3.5-5.1); SGOT/AST 20 U/L (14-36); SGPT/ALT 14 U/L (0-35); SODIUM 138 mmol/L (137-145); Total Protein 7.3 g/dL (6.3-8.2)
--- NOTE | 2022-08-17 16:27 | XRAY ---
Indication: Left abdomen pain. Status post hysterectomy. Multiple contiguous images obtained through the abdomen and pelvis without contrast. Comparison: July 28, 2022. Lung bases has markedly improved with now minimal subsegmental atelectasis/scarring. Heart not enlarged. Noncontrasted stomach and bowel loops appear nonobstructed with normal appendix. Again mild diffuse scattered colonic fecal debris throughout, hysterectomy, and left renal cyst. Tiny pelvic free fluid improved. No walled off fluid collection or free air. Remaining liver, gallbladder, pancreas, spleen, adrenal glands, kidneys, ureters, and bladder are unremarkable for noncontrast exam. Again minimal aortic calcifications. Osseous structures again demonstrates L4-L5 degenerative changes and bilateral L4 spondylosis with grade 2 listhesis. Impression: 1. Tiny pelvic free fluid improved since CT exam 3 weeks ago and again presumed postoperative. No walled off fluid collection or free air. 2. Again mild diffuse fecal stasis, left renal cyst, and chronic bony findings. 3. No new/acute intra-abdominal/pelvic abnormalities on this noncontrast exam.
== END 2022-08-17 17:22 | disposition home or self-care (01) ==
LOC: ED 13:38
DX: R10.32 Left lower quadrant pain (principal); Z28.310 Unvaccinated for COVID-19
CPT/HCPCS: 36415; 74176; 80053; 81001; 82150; 83690; 85025; 99283

== ENCOUNTER 2024-01-12 08:44 | Emergency (ER) | payer OTHER ==
[2024-01-12 08:58] VITALS: TEMP 97
[2024-01-12] MEDS ORDERED: BENADRYL 50 MG/ML ONE (09:23)
[2024-01-12] MEDS ORDERED: Reglan 10 MG/2 ML ONE (09:23)
--- NOTE | 2024-01-12 09:23 | ERPHSYRPT ---
- History of Present Illness Time Seen by Provider: 01/12/24 09:18 Source: patient Exam Limitations: no limitations Patient Subjective Stated Complaint: Hypertension Triage Nursing Assessment: Patient ambulated back to ED and transferred self to bed. Patient A+O X3. Patient's skin pink, warm and dry. Patient complains of High blood pressure and headache 01/12. Patient states her blood pressure was 182/106. Patient states she has a headache, and feels shaky all over with some nausea. Physician History: 48-year-old female fairly healthy with history of tobacco use presented in the ER with complaints of headache and high blood pressure. Patient reports for the last few weeks her blood pressure has been staying high, has been monitoring and usually stays in 140s and 150s. This morning she started to have a generalized headache moderate to severe sharp with no significant aggravating or relieving factors. She took Tylenol with no relief. Denies any numbness tingling or focal weakness but generalized weakness and shakiness along with some nausea. Denies any chest pain palpitations or shortness of breath. No fever or chills reported. No history of migraine. Patient checked her blood pressure at home i t was in 180s, on presentation in the ER it is in 160s. Allergies/Adverse Reactions: shrimp Allergy (Severe, Verified 01/12/24 08:49) Anaphylactic Reaction bupropion [From Wellbutrin] Allergy (Unknown, Verified 01/12/24 08:49) Hives Hx Influenza Vaccination/Date Given: No Hx Pneumococcal Vaccination/Date Given: No Immunizations Up to Date: Yes Travel Risk - International Travel Have you traveled outside of the country in past 3 weeks: No - Emerging Infectious Disease Are you exhibiting symptoms associated with any current EIDs: No - Review of Systems Constitutional: Fatigue Eyes: No Symptoms Ears, Nose, & Throat: No Symptoms Respiratory: No Symptoms Cardiac: No Symptoms Abdominal/Gastrointestinal: Nausea Genitourinary Symptoms: No Symptoms Musculoskeletal: No Symptoms Skin: No Symptoms Neurological: Headache Psychological: No Symptoms Endocrine: No Symptoms Hematologic/Lymphatic: No Symptoms Immunological/Allergic: No Symptoms - Past Medical History Pertinent Past Medical History: Yes Neurological History: No Pertinent History ENT History: No Pertinent History Cardiac History: No Pertinent History Respiratory History: No Pertinent History Endocrine Medical History: No Pertinent History Musculoskeletal History: No Pertinent History GI Medical History: No Pertinent History History: No Pertinent History Psycho-Social History: No Pertinent History Female Reproductive Disorders: Abnormal Uterine Bleeding Other Medical History: Mrsa in throat approx 5 years, ESBL June 2021, lower back injury approx 2010 pt is supposed to fusion to lower back. - Past Surgical History Past Surgical History: Yes Neuro Surgical History: No Pertinent History Cardiac: No Pertinent History Respiratory: No Pertinent History Gastrointestinal: No Pertinent History Genitourinary: No Pertinent History Musculoskeletal: No Pertinent History Female Surgical History: Tubal Ligation Other Surgical History: total hysterectomy on 07/28/22 - Female History Hx Last Menstrual Period: Hysterectomy Hx Now: No - Social History Smoking Status: Current some day smoker How long have you smoked: 36 years Exposure to second hand smoke: Yes Drug Use: none Patient Lives Alone: No - Social Determinants of Health Will the patient participate in the screening: Yes Do you worry about a steady place to live?: No Do you have any problems with any of the following?: No known problems In the past 12 months,have you had to go without utilities?: No Transportation Issues: No Has anyone in your support network made you feel unsafe?: No Have you or anyone in your house had to go without enough: No - Nursing Vital Signs Nursing Vital Signs: Initial Vital Signs Temperature 97.0 F 01/12/24 08:52 Pulse Rate 71 01/12/24 08:52 Respiratory Rate 20 01/12/24 08:52 Blood Pressure 180/102 01/12/24 08:52 O2 Sat by Pulse Oximetry 99 01/12/24 08:52 Pain Scale Pain Intensity 10 - Physical Exam General Appearance: no apparent distress, alert Eye Exam: PERRL/EOMI Ears, Nose, Throat Exam: normal ENT inspection Neck Exam: normal inspection, non-tender, supple, full range of motion, No meningismus Respiratory Exam: normal breath sounds, lungs clear Cardiovascular Exam: regular rate/rhythm, normal heart sounds Gastrointestinal/Abdominal Exam: soft, normal bowel sounds, No tenderness Extremity Exam: normal inspection, normal range of motion Mental Status Exam: alert, oriented x 3, cooperative dean Exam: normal hearing, normal speech, PERRL Coordination/Gait Exam: normal finger to nose, normal gait, normal cerebellar function, negative Romberg's sign Motor/Sensory Exam: no motor deficit, no sensory deficit, no pronator drift, negative Babinski's sign DTR Exam: bicep (R): 2+, bicep (L): 2+, knee (R): 2+, knee (L): 2+ Skin Exam: normal color SpO2 Interpretation: normal SpO2: 99 O2 Delivery: Room Air - Course EKG Interpreted by Me: RATE (65), Sinus Rhythm, NORMAL AXIS, NORMAL INTERVALS, Non-specific ST Changes Ordered Tests: Active Orders 24 hr Category Date Time Status Assistant Buyer STAT Care 01/12/24 09:19 Active IV Insertion STAT Care 01/12/24 09:18 Active CHEST 1 VIEW (PORTABLE) Stat Exams 01/12/24 09:19 Completed HEAD WITHOUT CONTRAST [CT] Stat Exams 01/12/24 09:19 Completed CBC W DIFF Stat Lab 01/12/24 09:22 Completed CMP Stat Lab 01/12/24 09:22 Completed NT PRO BNPII Stat Lab 01/12/24 09:22 Completed TROPONIN Q4H Lab 01/12/24 09:22 Completed TROPONIN Q4H Lab 01/12/24 13:30 Ordered TROPONIN Q4H Lab 01/12/24 17:30 Ordered UA W/RFX UR CULTURE Stat Lab 01/12/24 09:21 Completed Medication Summary Discontinued Medications Generic Name Dose Route Start Last Admin Trade Name Freq PRN Reason Stop Dose Admin Diphenhydramine HCl 25 mg 01/12/24 09:18 01/12/24 09:24 Diphenhydramine Hcl 50 Mg/Ml Vial IV 01/12/24 09:19 25 mg STAT ONE Administration Diphenhydramine HCl Confirm 01/12/24 09:23 Diphenhydramine Hcl 50 Mg/Ml Vial Administered 01/12/24 09:24 Dose 50 mg .ROUTE .STK-MED ONE Metoclopramide HCl 10 mg 01/12/24 09:18 01/12/24 09:24 Metoclopramide Hcl 10 Mg/2 Ml Vial IV 01/12/24 09:19 10 mg STAT ONE Administration Metoclopramide HCl Confirm 01/12/24 09:23 Metoclopramide Hcl 10 Mg/2 Ml Vial Administered 01/12/24 09:24 Dose 10 mg .ROUTE .STK-MED ONE Lab/Rad Data: Laboratory Result Diagrams 01/12/24 09:22 01/12/24 09:22 Laboratory Results 01/12/24 01/12/24 01/12/24 Range/Units 09:22 09:22 09:22 WBC (3.98-10.04) x10^3/uL RBC (3.93-5.22) x10^6/uL Hgb (11.2-15.7) g/dL Hct (34.1-44.9) % MCV (79.4-94.8) fL MCH (25.6-32.2) pg MCHC (32.2-35.5) g/dL RDW (11.7-14.4) % Plt Count (182-369) x10^3/uL MPV (9.4-12.3) fL Gran % (34.0-71.1) % Immature Gran % (Auto) (0.001-0.429) % Nucleat RBC Rel Count (0.00-0.2) % Eos # (Auto) (0.04-0.36) x10^3/uL Immature Gran # (Auto) (0.001-0.031) x10^3u/L Absolute Lymphs (auto) (1.18-3.74) x10^3/uL Absolute Monos (auto) (0.24-0.86) x10^3/uL Absolute Nucleated RBC (0.00-0.012) x10^3u/L Lymphocytes % (19.3-51.7) % Monocytes % (4.7-12.5) % Eosinophils % (0.7-5.8) % Basophils % (0.1-1.2) % Absolute Granulocytes (1.56-6.13) x10^3/uL Basophils # (0.01-0.08) x10^3/uL Sodium 140 (135-145) mmol/L Potassium 3.9 (3.5-5.1) mmol/L Chloride 108 H (98-107) mmol/L Carbon Dioxide 19 L (22-30) mmol/L Anion Gap 16.7 H (5-15) MEQ/L BUN 16 (7-17) mg/dL Creatinine 0.90 (0.52-1.04) mg/dL Estimated GFR 78.4 ML/MIN Glucose 121 H (74-106) mg/dL Calcium 9.4 (8.4-10.2) mg/dL Total Bilirubin 0.70 (0.2-1.3) mg/dL AST 26 (14-36) U/L ALT 25 (0-35) U/L Alkaline Phosphatase 71 (38-126) U/L Troponin I < 0.012 (0.000-0.033) ng/mL NT-Pro-B Natriuret Pep 81.2 (<300) pg/mL Serum Total Protein 7.4 (6.3-8.2) g/dL Albumin 4.5 (3.5-5.0) g/dL Urine Color (Yellow) Urine Appearance (Clear) Urine pH (4.6-8.0) Ur Specific [place] (1.005-1.030) Urine Protein (Negative) Urine Glucose (UA) (Negative) mg/dL Urine Ketones (Negative) Urine Blood (Negative) Urine Nitrite (Negative) Urine Bilirubin (Negative) Urine Urobilinogen (0.2) mg/dL Ur Leukocyte Esterase (Negative) U Hyaline Cast (Auto) (0-2) /LPF Urine Microscopic RBC (0-5) /HPF Urine Microscopic WBC (0-5) /HPF Ur Epithelial Cells (None Seen) /HPF Urine Bacteria (None Seen) /HPF Urine Culture Reflexed (NO) 01/12/24 01/12/24 Range/Units 09:22 09:21 WBC 8.1 (3.98-10.04) x10^3/uL RBC 5.20 (3.93-5.22) x10^6/uL Hgb 15.2 (11.2-15.7) g/dL Hct 45.9 H (34.1-44.9) % MCV 88.3 (79.4-94.8) fL MCH 29.2 (25.6-32.2) pg MCHC 33.1 (32.2-35.5) g/dL RDW 13.5 (11.7-14.4) % Plt Count 327 (182-369) x10^3/uL MPV 10.9 (9.4-12.3) fL Gran % 67.8 (34.0-71.1) % Immature Gran % (Auto) 0.2 (0.001-0.429) % Nucleat RBC Rel Count 0.0 (0.00-0.2) % Eos # (Auto) 0.17 (0.04-0.36) x10^3/uL Immature Gran # (Auto) 0.02 (0.001-0.031) x10^3u/L Absolute Lymphs (auto) 1.94 (1.18-3.74) x10^3/uL Absolute Monos (auto) 0.43 (0.24-0.86) x10^3/uL Absolute Nucleated RBC 0.00 (0.00-0.012) x10^3u/L Lymphocytes % 24.0 (19.3-51.7) % Monocytes % 5.3 (4.7-12.5) % Eosinophils % 2.1 (0.7-5.8) % Basophils % 0.6 (0.1-1.2) % Absolute Granulocytes 5.46 (1.56-6.13) x10^3/uL Basophils # 0.05 (0.01-0.08) x10^3/uL Sodium (135-145) mmol/L Potassium (3.5-5.1) mmol/L Chloride (98-107) mmol/L Carbon Dioxide (22-30) mmol/L Anion Gap (5-15) MEQ/L BUN (7-17) mg/dL Creatinine (0.52-1.04) mg/dL Estimated GFR ML/MIN Glucose (74-106) mg/dL Calcium (8.4-10.2) mg/dL Total Bilirubin (0.2-1.3) mg/dL AST (14-36) U/L ALT (0-35) U/L Alkaline Phosphatase (38-126) U/L Troponin I (0.000-0.033) ng/mL NT-Pro-B Natriuret Pep (<300) pg/mL Serum Total Protein (6.3-8.2) g/dL Albumin (3.5-5.0) g/dL Urine Color Yellow (Yellow) Urine Appearance Clear (Clear) Urine pH 5.5 (4.6-8.0) Ur Specific [place] 1.015 (1.005-1.030) Urine Protein Negative (Negative) Urine Glucose (UA) Negative (Negative) mg/dL Urine Ketones Negative (Negative) Urine Blood Negative (Negative) Urine Nitrite Negative (Negative) Urine Bilirubin Negative (Negative) Urine Urobilinogen 0.2 (0.2) mg/dL Ur Leukocyte Esterase Negative (Negative) U Hyaline Cast (Auto) NONE SEEN (0-2) /LPF Urine Microscopic RBC 0-2 (0-5) /HPF Urine Microscopic WBC 0-2 (0-5) /HPF Ur Epithelial Cells None Seen (None Seen) /HPF Urine Bacteria None Seen (None Seen) /HPF Urine Culture Reflexed NO (NO) - Progress Progress: improved Air Movement: good Progress Note: 01/12/24 11:13 48-year-old is evaluated in the ER for high blood pressure readings at home and headache. Patient has nonfocal neuroexam, EKG is sinus rhythm with no ST elevations. She is given symptomatic treatment for headache with Reglan and Benadryl, on reevaluation she has almost complete resolution of her headache. Patient workup showed normal white count, fairly unremarkable chemistries except for mildly low bicarb. Negative troponins. Chest x-ray negative. Obtained CT head which is negative for any acute finding, does have calcified meningioma. Patient neuroexam remained nonfocal. Initial blood pressure was in 160s, improved to 140s. Patient's home blood pressure readings are in 140s and 150s. I believe patient needs antihypertensive and high blood pressure could be the reason for her headache and vice versa. I would send a prescription of losartan, recommended monitoring and outpatient follow-up. Do not think patient needs any other workup and can be discharged with outpatient follow-up. Discussed signs symptoms of worsening needing return to ER which she seems understanding. Stable for discharge. Blood Culture(s) Obtained: No Antibiotics given: No Counseled pt/family regarding: lab results, diagnosis, need for follow-up, rad results Medical Desision Making - Diagnostic Testing Diagnostic test were ordered, analyzed, and reviewed by me: Yes Radiological Interpretation: Reviewed by me - Risk of complications The pt has a mod risk of morbidity or mortality based on: Need for prescription drug management - Departure Departure Disposition: Home Clinical Impression: Hypertension, Headache Condition: Stable Critical Care Time: No Referrals: SUSAN ROMERO NP [Primary Care Provider] - Follow up with PCP 1 day Instructions: Controlling your blood pressure through lifestyle, DASH diet Additional Instructions: Take low-salt diet, regular exercise, weight loss. Monitor your glucose regula rly, follow-up with primary care for reevaluation. Take Tylenol/ibuprofen as needed for headache. Return to ER for intractable headache, numbness tingling focal weakness slurred visual disturbance/difficulty speech etc Prescriptions: Losartan Potassium 25 mg PO DAILY 30 Days #30 tablet
[2024-01-12 09:24] LABS: Absolute Neutrophil Ct (ANC) 5.46 x10^3/uL (1.56-6.13); BASOPHIL % 0.6 % (0.1-1.2); Basophil (Absolute #) 0.05 x10^3/uL (0.01-0.08); Eosinophil % 2.1 % (0.7-5.8); Eosinophil (Absolute #) 0.17 x10^3/uL (0.04-0.36); Hematocrit 45.9 % (34.1-44.9); Hemoglobin 15.2 g/dL (11.2-15.7); IMMATURE GRAN # 0.02 x10^3u/L (0.001-0.031); IMMATURE GRAN % 0.2 % (0.001-0.429); Lymphocyte (Absolute #) 1.94 x10^3/uL (1.18-3.74); Mean Cell Volume 88.3 fL (79.4-94.8); Mean Corpuscular Hemoglobin 29.2 pg (25.6-32.2); Mean Corpuscular Hgb Concent. 33.1 g/dL (32.2-35.5); Mean Platelet Volume 10.9 fL (9.4-12.3); Monocyte (Absolute #) 0.43 x10^3/uL (0.24-0.86); Monocytes % 5.3 % (4.7-12.5); Neutrophil % 67.8 % (34.0-71.1); Platelet Count 327 x10^3/uL (182-369); Red Cell Distribution Width 13.5 % (11.7-14.4); White Blood Count 8.1 x10^3/uL (3.98-10.04)
[2024-01-12] MEDS: BENADRYL 50 MG/ML IV ONE (09:24)
[2024-01-12] MEDS: Reglan 10 MG/2 ML IV ONE (09:24)
[2024-01-12 09:34] LABS: ALBUMIN 4.5 g/dL (3.5-5.0); ANION GAP 16.7 MEQ/L (5-15); BILIRUBIN,TOTAL 0.7 mg/dL (0.2-1.3); Calcium 9.4 mg/dL (8.4-10.2); Creatinine 1 0.9 mg/dL (0.52-1.04); EST GLOMERULAR FILTRATION RATE 78.4 ML/MIN; Potassium 3.9 mmol/L (3.5-5.1); Total Protein 7.4 g/dL (6.3-8.2)
--- NOTE | 2024-01-12 10:26 | XRAY ---
Indication: Hypertension. Comparison: None Portable chest demonstrates normal heart, lungs, and bony thorax.
--- NOTE | 2024-01-12 10:28 | XRAY ---
Indication: Headache. Elevated blood pressure. Multiple contiguous axial images obtained through the head without contrast. Comparison: None Right parietal convexity demonstrates 4 x 7 mm extra-axial oval calcification, probable calcified meningioma. Otherwise normal appearing brain parenchyma, ventricles, and bony calvarium. Visualized paranasal sinuses and mastoid air cells are clear. Impression: Probable subcentimeter right parietal calcified meningioma. Remaining CT head without contrast exam is normal.
[2024-01-12 10:29] LABS: Appearance Clear (Clear); Bacteria None Seen /HPF (None Seen); Bilirubin Negative (Negative); Blood Negative (Negative); Epithelial Cells None Seen /HPF (None Seen); Glucose, Urine Negative (Negative); Hyaline Casts NONE SEEN /LPF (0-2); Ketones Negative (Negative); Leukocyte Esterase Negative (Negative); Nitrite Negative (Negative); Ph 5.5 (4.6-8.0); Protein,Urine Dip Negative (Negative); RBC 0-2 /HPF (0-5); Specific Gravity 1.015 (1.005-1.030); Urobilinogen 0.2 mg/dL (0.2); WBC 0-2 /HPF (0-5)
[2024-01-12 11:19] VITALS: O2SAT 99
[2024-01-12 11:41] VITALS: BP 135/83; PULSE 54; RESP 19
== END 2024-01-12 11:41 | disposition home or self-care (01) ==
LOC: ED 08:44
DX: I10 Essential (primary) hypertension (principal); R51.9 Headache, unspecified; R53.1 Weakness; R11.0 Nausea; Z72.0 Tobacco use; Z79.899 Other long term (current) drug therapy
CPT/HCPCS: 36000; 36415; 70450; 71045; 80053; 81001; 83880; 84484; 85025; 93005; 93041; 96374; 96375; 99284; J1200